=== PATIENT | female | born 1950 ===

== ENCOUNTER 2018-01-22 06:47 | Day surgery (SDC) | payer MEDICARE, OTHER ==
--- NOTE | 2018-01-15 13:35 | EKG REPORT ---
SEVERITY:- NORMAL ECG - SINUS RHYTHM : Confirmed by: Sarkis Owusu MD 15-Jan-2018 13:34:48
[~2018-01-22 06:47] MED LIST: ACETAMINOPHEN 325 MG TABLET PO PRN; LACTATED RINGERS 1000 ML IV PRN
[2018-01-22] MEDS ORDERED: PROPOFOL INJ 200 MG/20 ML VIAL IV ONE (09:47)
[2018-01-22] MEDS ORDERED: PROMETHAZINE HCL INJ 25 MG/1 ML VIAL IV PRN ×2 (10:12)
[2018-01-22] MEDS ORDERED: MORPHINE SULFATE 10 MG/ML INJ IV PRN (10:12)
[2018-01-22] MEDS ORDERED: MEPERIDINE HCL/PF INJ 25 MG/1 ML DISP.SYRIN IV PRN (10:12)
[2018-01-22] MEDS ORDERED: DIPHENHYDRAMINE HCL 50 MG/ML VIAL IV PRN (10:12)
[2018-01-22] MEDS ORDERED: OXYCODONE-ACETAMINOPHEN 5-325 MG TABLET PO PRN ×2 (10:12)
[2018-01-22] MEDS ORDERED: FENTANYL CITRATE INJ/PF 100 MCG/2 ML AMPUL IV PRN ×3 (10:12)
--- NOTE | 2018-01-22 10:50 | Operative Report ---
Nonrecallable Operative Report DATE OF SURGERY: 01/22/18 PREOPERATIVE DIAGNOSIS: Personal history of colon polyps POSTOPERATIVE DIAGNOSIS: 1. Personal history of colon polyps. 2. Normal screening colonoscopy. 3. Diverticulosis without signs of diverticulitis. OPERATION: Normal screening colonoscopy SURGEON: YVETTE GUERRA ANESTHESIA: LMAC TISSUE REMOVED OR ALTERED: None COMPLICATIONS: None apparent ESTIMATED BLOOD LOSS: None PROCEDURE: Procedure in detail: After informed consent was obtained, the patient was laid in the left lateral decubitus position in the operating room. The endoscope was passed up the rectum, sigmoid colon, descending colon, across the transverse colon, and to the ileocolic anastomosis. Once this was identified, the scope was pulled back circumferentially noting the mucosa. The prep was very good. The scope was pulled back past the transverse colon, descending colon, sigmoid colon, and into the rectum. In the rectum a retroflexion maneuver was performed. There were no significant internal hemorrhoids. The scope was straightened, air was suctioned from the rectum, the scope was removed , and the procedure was concluded. Please note that there were no masses, lesions, ulcerations, polyps, tumors, strictures, or bleeding noted within the colon. There were several scattered diverticula throughout the sigmoid colon. There were no signs of diverticulitis. All sponge, instrument, and needle counts were correct 2. Condition: Stable. Recommendation: Repeat colonoscopy in 5 years due to a personal history of colon polyps.
[2018-01-22 11:58] VITALS: BP 125/81
--- NOTE | 2018-01-22 13:12 | Discharge Summary ---
Discharge Summary (SDC) - Discharge Final Diagnosis: high risk, screening for malignancy. Normal screening colonoscopy Date of Surgery: 01/22/18 Discharge Date: 01/22/18 Condition: Stable Forms: ASU Anesthesia D/C Instruction, Discharge POC-Surgical Service Treatment or Instructions: needs repeat colonoscopy in 5 years Referrals: YVETTE GUERRA MD [ACTIVE STAFF] - (Follow up as needed) Discharge Diet: As Tolerated Respiratory Treatments at Home: Deep Breathing/Coughing, Incentive Spirometer Discharge Activity: Activity As Tolerated Home Care Assistance: None Needed Report the Following to Your Physician Immediately: Shortness of Breath, Nausea , Vomiting, Increase in Pain, Fever over 101 Degrees, Unusual Bleeding
== END 2018-01-22 11:35 | disposition home or self-care (01) ==
LOC: OROUT 06:47
PROVIDERS: ATTEND Surgery
DX: Z12.11 Encounter for screening for malignant neoplasm of colon (principal); K57.30 Diverticulosis of large intestine without perforation or abscess without bleeding; Z86.010 Personal history of colon polyps; I10 Essential (primary) hypertension; Z79.899 Other long term (current) drug therapy
CPT/HCPCS: 93005; 36415; 84132; 93010; G0121; J2704; 812

== ENCOUNTER 2019-03-24 09:42 | Day surgery (SDC) | payer MEDICARE, OTHER ==
[~2019-03-24 09:42] MED LIST changes: -ACETAMINOPHEN 325 MG TABLET PO PRN; +CHONDR SU A NA/HYALUR INTRAOC KIT (SURGICARE) ONE; +EPINEPHRINE INJ/PF 1 MG/1 ML AMPULE ONE; -LACTATED RINGERS 1000 ML IV PRN; +LIDOCAINE 1%/PHENYLEPHRINE 1.5% 1 ML VIAL ONE
[2019-03-24] MEDS ORDERED: NEO/POLYMYX B SULF/DEXAMETH OPH SUSP 5 ML ONE (10:09)
[2019-03-24] MEDS ORDERED: BALANCED SALT IRRIG SOLN COMB2 15 ML BOTTLE ONE (10:09)
[2019-03-24] MEDS ORDERED: POVIDONE-IODINE 5% OPH PREP SOLN 30 ML ONE (10:09)
[2019-03-24] MEDS ORDERED: LIDOCAINE 2%/EPINEPHRINE INJ 20 ML VIAL ONE (10:09)
[2019-03-24] MEDS ORDERED: TETRACAINE HCL 0.5% OPH SOLN 4 ML ONE (10:09)
[2019-03-24] MEDS ORDERED: BUPIVACAINE HCL 0.75% INJ/PF (7.5 MG/1 ML) 10 ML SDV ONE (10:09)
[2019-03-24] MEDS ORDERED: PROPOFOL INJ 200 MG/20 ML VIAL IV ONE ×2 (10:50→11:51)
[2019-03-24] MEDS ORDERED: MIDAZOLAM 2 MG/2 ML INJ ONE (10:50)
[2019-03-24] MEDS ORDERED: SODIUM CHLORIDE IRRIG SOLUTION 0 ML ONE (10:53)
[2019-03-24] MEDS ORDERED: NORMAL SALINE INJ/PF 0.9% 10 ML SDV ONE (10:54)
[2019-03-24] MEDS ORDERED: ACETAMINOPHEN 325 MG TABLET PO PRN (11:00)
[2019-03-24] MEDS: TRANEXAMIC ACID INJ/PF 1,000 MG/10 ML SDV TOP PRN ×2 (11:55)
[2019-03-24] MEDS: NEO/POLYMYX B SULF/DEXAMETH OPH OINTMENT 3.5 GM ONE ×2 (12:30)
--- NOTE | 2019-03-25 07:30 | Operative Report ---
Operative Report-[facility] Operative Report: Date of surgery: 03/24/2019 Surgeon: Marc Baltazar MD Preoperative diagnosis: Bilateral dermatochalasis Discharge diagnosis: Bilateral upper lid dermatochalasis Procedure: Functional bilateral upper lid blepharoplasty Blood loss: Less than 10 cc Complications: None Anesthesia: MAC with local injection of lidocaine Description of operative report: After obtaining appropriate informed consent the patient was brought back to the operating room. The lids were prepped and draped in sterile fashion. A skin marker was used to outline the appropriate amount of skin. This followed the lower lid crease and extended superiorly to remove the appropriate amount of skin. Next a 15 blade was used to excise the skin. Left scissors and a forcep were used to remove the skin in its entirety. A thin strip of orbicularis was then removed. Following this hemostasis was achieved with cautery. A 5-0 silk was used to realign the skin margins taking a strip of orbicularis simple interrupted fashion. 2 sutures were performed display. Next 6-0 nylon was used in a running fashion going skin the skin to close the incision. The incision was found to be well aligned and sealed. This process was repeated on both upper eyelids. Maxitrol ointment was placed in the eye and on the incisions. The patient was taken to the preop holding area for recovery in excellent condition. An ice pack was applied to both legs in the holding area for approximately 20 minutes. The patient is to be on a regular diet. They are supposed to use ice on their lids for 15 minutes of every hour for the first 6 hours. Then patient is to apply ice 4 times daily for the next 3 days. Very to use her maxitrial ointment to the lids twice a day as well. They are to call with any questions or concerns. I will see them back in 5 to 7 days for suture removal. Reason for surgery: Patient underwent surgery because of her eyelids were blocking her superior visual field making it difficult to see. Her upper eyelids also felt very heavy and were causing straining and headaches. The visual field was documented preoperatively with tape lids. Photos were also taken to document that this is a functional blepharoplasty.
== END 2019-03-24 13:34 | disposition home or self-care (01) ==
LOC: SC 09:42
PROVIDERS: ATTEND Internal Medicine
DX: H02.831 Dermatochalasis of right upper eyelid (principal); H02.834 Dermatochalasis of left upper eyelid; I10 Essential (primary) hypertension; Z79.899 Other long term (current) drug therapy
CPT/HCPCS: 15823; J2250; J3490 ×8; J2704; 103; J0171; J2370